=== PATIENT | female | born 1985 | race Caucasian/White ===

== ENCOUNTER → 2020-12-04 08:58 | Outpatient (CLI) | payer OTHER, SELFPAY ==
--- NOTE | 2020-12-04 09:04 | BI_ITS ---
MAMMOGRAPHY - BILATERAL DIAGNOSTIC REASON FOR EXAM: Female, 35 years old. Right breast lump. PERTINENT HISTORY: Non-contributory. TECHNIQUE: Digital bilateral breast phil (3D mammographic acquisition) in the CC and MLO projections. 2-D mediolateral oblique (MLO) and craniocaudad (CC) views of both breasts were obtained. CAD: Full Field Digital Mammography with Computer Added Detection was performed. COMPARISON: None. Baseline examination. FINDINGS: Breast Composition: There are scattered areas of fibroglandular density. There are no dominant masses or suspicious calcifications. No other significant abnormalities are identified. BI/DIAG MAMM W/CAD, BILAT IMPRESSION: Negative diagnostic mammogram. With the patient''s history of a palpable lump in the upper aspect of the right breast, correlation with ultrasound is recommended. ASSESSMENT CATEGORY: BIRADS Category 0: Incomplete. Need additional imaging evaluation. A letter regarding these results will be sent to the patient by the facility within 30 days. Approximately 10% of breast cancers are not detected by mammography. A normal mammogram should not delay biopsy of a clinically suspicious abnormality. Electronically Signed: Jordan Obrien MD at 10:04 EDT , Service support ,
--- NOTE | 2020-12-04 09:35 | US_ITS ---
STUDY: ULTRASOUND BREAST - RIGHT REASON FOR EXAM: Female, 35 years old. Palpable lump in the right breast. TECHNIQUE: Axial and longitudinal images of the RIGHT breast were performed with a high resolution ultrasound transducer. # OF IMAGES: 31 COMPARISON: Comparison is made with prior mammogram done earlier today. FINDINGS: RIGHT Breast: The upper outer quadrant of the right breast was examined by ultrasound. No sonographic abnormality is seen. US/Breast Limited Unilateral IMPRESSION: No sonographic abnormality is seen. ASSESSMENT CATEGORY: BIRADS Category 1: Negative. A letter regarding these results will be sent to the patient by the facility within 30 days. Electronically Signed: Jordan Obrien MD at 10:17 EDT , Service support ,
== END ==
PROVIDERS: Referring Provider Obstetrics & Gynecology; Visit Provider Obstetrics & Gynecology
DX: N63.10 Unspecified lump in the right breast, unspecified quadrant (principal); R92.8 Other abnormal and inconclusive findings on diagnostic imaging of breast
CPT/HCPCS: 76642; 77062; 77066; G0279

== ENCOUNTER 2024-05-02 16:29 | Emergency (ER) | payer OTHER, SELFPAY ==
[2024-05-02 16:33] VITALS: BP 167/97; PULSE 44; RESP 18; TEMP 36.2; O2SAT 94; BMI 28.8
--- NOTE | 2024-05-02 16:58 | EKG12_ITS ---
Test Reason : PALPITATIONS Blood Pressure : */* mmHG Vent. Rate : 87 BPM Atrial Rate : 87 BPM P-R Int : 130 ms QRS Dur : 72 ms QT Int : 370 ms P-R-T Axes : 72 25 60 degrees QTcB Int : 445 ms Normal sinus rhythm with sinus arrhythmia Normal ECG Confirmed by Ty Candelaria ([id number]), online editor MINOR OLIVEROS ([id number]) on 05/04/2024 11:02:25 AM Referred By: Confirmed By: Ty Candelaria
--- NOTE | 2024-05-02 17:01 | ED.VIS.CHEST ---
HPI History of Present Illness Chief Complaint: Chest Pain Detail of Chief Complaint: Central chest tightness, heart pounding Informant: patient and spouse/S.O. Onset/Context/Timing Onset: Hours Activity at onset: sudden Timing: Continuous Quality: Positive for Tightness Location: Substernal Current Severity: Mild Maximum Severity: Moderate Worsened By: Nothing Relieved By: Nothing Associated Symptoms: Positive for Palpitations; Negative for Nausea, Vomiting, Diaphoresis, Dyspnea, Cough, Fever, Lightheadedness or Acid Reflux Narrative Narrative: Patient is a 38-year-old healthy female with no medical problems no medication who apparently started taking a diet suppressant 3 days ago. She does not know the name. She has no history of coronary disease, hypertension, diabetes, cholesterol. She has been seen by residential support specialist at [facility]. She was referred to them because there was concern she had pericarditis. The residential support specialist states she had costochondritis and not pericarditis. She normally sees her doctor who is affiliated with [facility]. She denies any recent infectious symptoms. Denies fever or chills. When her heart was pounding and she felt palpitations heart rate was 120. She states her heart rate has been as high as 160 in the past. She was not diagnosed with PSVT, reentry tachycardia or any type of dysrhythmia. She denies paresthesia, anesthesia or motor weakness. She denies orthostatic symptoms. There is no history of VTE and she has no risk factors. She denies leg pain, swelling or discoloration. Prior Similar Symptoms: Yes Recent Illness/Hospitalization: No CVD Risk Factors: Negative for Hypertension, Diabetes, Hypercholesterolemia, Family History 1' </=55 or Smoking PE Risk Factors: Negative for Recent Travel/Surgery, Recent Immobilization, Prior DVT or PE, Cancer or OCP + Smoking + >/=35 TAD Risk Factors: Negative for Marfan's Syndrome, Hypertension or Family History PFSH PFSH Medical History no medical history no medical history Home Medications ?Medication ?Instructions ?Recorded ?Last Taken ?Type NK 05/02/24 Unknown History Allergy/AdvReac Type Severity Reaction Status Date / Time morphine Allergy Hives Verified 05/02/24 16:32 mushroom (mushrooms) Allergy Hives Verified 05/02/24 16:33 Family History no significant family his Surgical History S/P cholecystectomy Surgical History no surgical history Social History (Updated 05/02/24 @ 17:[address] Devin Cummings MD) household members: spouse Smoking Status: Never smoker alcohol intake: never substance use type: does not use ROS ROS ED Constitutional Constitutional ED: Denies chills, fever(s), subjective or sweats Eyes Eyes: Reports none ENT ENT ED: Denies ear pain or rhinorrhea Cardiovascular Cardiovascular: Reports as per HPI; Denies orthopnea or paroxysmal nocturnal dyspnea Respiratory/Chest Respiratory/Chest: Denies cough, dyspnea, dyspnea on exertion, orthopnea or paroxysmal nocturnal dyspnea Gastrointestinal Gastrointestinal: Denies abdominal pain, diarrhea, melena or vomiting Musculoskeletal Musculoskeletal: Denies back pain Integumentary Denies rash Psychiatric Psychiatric: Denies anxiety Endocrine Endocrinology: Denies cold intolerance or heat intolerance Hematologic/Lymphatic Hematologic/Lymphatic: Denies easy bleeding or easy bruising EXAM Physical Exam Const Vital Signs: 05/02/24 16:33 05/02/24 17:03 05/02/24 18:00 Temperature 97.2 F L Temperature Source Temporal Pulse Rate 44 L 77 Respiratory Rate 18 15 Blood Pressure 167/97 H Blood Pressure Mean 120 Pulse Ox 94 98 Oxygen Delivery Method Room Air 05/02/24 19:00 05/02/24 20:00 Temperature 97.8 F Temperature Source Oral Pulse Rate 73 76 Respiratory Rate 17 16 Blood Pressure 126/75 H 125/72 H Blood Pressure Mean 92 89 Pulse Ox 99 99 Oxygen Delivery Method Room Air Room Air Positive well nourished and well developed General Appearance ED: well developed and NAD; Negative for pallor HEENT Reports moist mucous membranes normocephalic and atraumatic Eyes PERRL and EOMs intact bilaterally General Eye ED: Negative for pale conjunctiva or scleral icterus Neck no lymphadenopathy, supple and no JVD Resp normal respiratory effort and clear to auscultation bilaterally Cardio regular rate, regular rhythm, S1 normal heart sound, S2 normal heart sound and no murmurs Peripheral Pulses: pulses 2+ throughout GI normal to inspection, nondistended, normoactive bowel sounds, soft to palpation, non-tender, non-distended and no masses; Negative for hepatosplenomegaly Extremity normal to inspection Extremity Narrative: There is no asymmetry, swelling, discoloration, leg vein distention, palpable cords or tenderness along the distribution of the deep venous system. Neuro oriented x3 and CN's II-XII intact bilaterally Sensorium / Orientation: awake and alert Psych mental status grossly normal Skin no rashes or lesions noted General Skin Exam: Negative for jaundice or pallor MDM MDM MDM Narrative Medical decision making narrative: Differential diagnosis would be cardiac versus noncardiac chest pain. Noncardiac chest pain with includes GI etiology i.e. esophagitis, GERD peptic ulcer disease, pulmonary patient is PERC negative. Symptoms not consistent with pneumonia. Patient is status postcholecystectomy. She had no tenderness in the abdomen and specifically right upper quadrant. To evaluate patient's presentation EKG, chest x-ray and appropriate blood work was obtained. Lab Data Attestation: I reviewed the patient's lab results. Lab results narrative: CBC is normal. Electrolyte panel is unremarkable. Glucose is slowly elevated. First troponin is 4 Labs: Laboratory Results - last 24 hr 05/02/24 05/02/24 16:56 19:45 WBC 8.4 RBC 5.07 Hgb 14.7 Hct 44.6 MCV 88.0 MCH 29.0 MCHC 33.0 RDW Std Deviation 39.3 RDW Coeff of Heather 12.3 Plt Count 258 MPV 10.0 Immature Gran % (Auto) 0.400 Neut % (Auto) 76.2 H Lymph % (Auto) 16.7 L Craven % (Auto) 6.3 Eos % (Auto) 0.0 Baso % (Auto) 0.4 Absolute Neuts (auto) 6.4 Absolute Lymphs (auto) 1.41 Nucleated RBC % 0 Sodium 139 Potassium 3.1 L Chloride 107 Carbon Dioxide 26.0 Anion Gap 7 BUN 13 Creatinine 0.79 Estim Creat Clear Calc 100.95 Est GFR (MDRD) Af Amer 104 Est GFR (MDRD) Non-Af 86 BUN/Creatinine Ratio 16.4 Glucose 107 H Calcium 8.9 Troponin I High Sens 4 9 Second troponin is 9. Delta is 5. Plan is to discharge to home with follow-up with Dr. Candelaria since she would like to have a residential support specialist locally. Radiography Chest X-Ray - ED: 1 View, Read by ED Physician (Interpreted by me at 1710.), Normal, Heart, Lungs, Mediastinum, Bony Structures and No Acute Disease Diagnostic Testing: Clinical Impression(s) from Imaging Studies Chest X-Ray 05/02/24 17:05 IMPRESSION: Normal x-ray examination of the chest. Electronically Signed: Cornelio Cartwright MD at 17:20 EST , EKG Initial EKG: Attestation: I personally reviewed and interpreted this EKG as follows: Interpretation: Sinus Rhythm (Rate is 87. AK interval is 130 ms. QS duration 72 ms per QT duration 3 or 70 ms. Leigh is normal. The EKG is normal. And was obtained with symptoms) Discharge Plan Triage Chief Complaint: Chest Pain Other Complaint: Numb/Ting ED Provider: Devin Cummings Dx/Rx/DC Orders Clinical Impression: Chest pain of unknown etiology, Tachycardia, Palpitations Instructions: ED Chest Pain, Noncardiac, ED Palpitations Prescriptions: No Action NK Primary Care Provider: Regine Hay NP Referrals: Ty Candelaria MD [Med Staff - Active Staff] - 1-2 Weeks Regine Hay NP, [employer] [Primary Care Provider] - Print Language: Icelandic Disposition Disposition: Home, Self Care
--- NOTE | 2024-05-02 17:05 | RAD_ITS ---
STUDY: X-RAY CHEST REASON FOR EXAM: Female, 38 years old. chest pain TECHNIQUE: Single AP portable view of the chest. COMPARISON: None. FINDINGS: The lungs are clear and expanded. There is no demonstrated pleural abnormality. Normal size heart. Normal mediastinum and mian. Normal visualized pulmonary arteries. Normal visualized aortic arch and descending thoracic aorta. Normal visualized thoracic spine. Normal visualized ribs, clavicles, and shoulders. There is no demonstrated abnormality of the visualized soft tissue structures of the upper abdomen. RAD/Chest 1 View (Portable) IMPRESSION: Normal x-ray examination of the chest. Electronically Signed: Cornelio Cartwright MD at 17:20 EST ,
[2024-05-02 17:33] LABS: Absolute Lymphocyte Count 1.41 X10^3/uL (0.83-4.51); Absolute Neutrophil Count 6.4 X10^3/uL (2.0-7.7); Basophil# 0.03 X10^3/uL; Basophil% 0.4 % (0-1); Hematocrit 44.6 % (37-47); Hemoglobin 14.7 g/dL (12.0-15.0); Lymphocyte # 1.41 X10^3/ul (0.83-4.51); Lymphocyte % 16.7 % (19-41); Monocyte# 0.53 X10^3/uL; Monocyte% 6.3 % (0-10); NRBC Flagged by Analyzer 0 % (0-5); Neutrophil # 6.43 X10^3/uL (2.7-7.7); Neutrophil % 76.2 % (47-70); Platelet Count 258 K/mm3 (150-450); RBC Distribution Width CV 12.3 % (11.6-14.6); RBC Distribution Width SD 39.3 fl (35.1-43.9); Red Blood Count 5.07 M/mm3 (4.2-5.4); White Blood Count 8.4 K/mm3 (4.4-11.0)
[2024-05-02 17:57] LABS: Anion Gap 7 (5-15); BUN 13 mg/dL (7-18); BUN/Creat Ratio 16.4 RATIO (10-20); Calcium,Total 8.9 mg/dL (8.5-10.1); Chloride 107 mmol/L (98-107); Creatinine, Serum 0.79 mg/dL (0.55-1.02); EST Glomerular Filtration Rate 86 mL/min (>60); Est Glom Filt Rate - Afr Amer 104 mL/min (>60); Estimated Creatinine Clearance 100.95 ml/min; Glucose 107 mg/dL (74-106); Potassium 3.1 mmol/L (3.5-5.1); Sodium Level 139 mmol/L (136-145); Troponin-I HS (w/2H Reflex) 4 pg/mL (3.0-54.0)
[2024-05-02 18:00] VITALS: PULSE 77; RESP 15; O2SAT 98
[2024-05-02 19:00] VITALS: BP 126/75; PULSE 73; RESP 17; TEMP 36.6; O2SAT 99
[2024-05-02 19:23] LABS: Reflex Troponin-HS? (from REC) Y
[2024-05-02 20:00] VITALS: BP 125/72; PULSE 76; RESP 16; O2SAT 99
[2024-05-02 20:11] LABS: Troponin-I HS 9 pg/mL (3.0-54.0)
[2024-05-02 20:24] VITALS: BP 126/84; PULSE 96; RESP 19; TEMP 36.7; O2SAT 98
== END 2024-05-02 20:54 | disposition home or self-care (01) ==
PROVIDERS: Emergency Provider Emergency Medicine; PCP Nurse Practitioner Family; Visit Provider Emergency Medicine
DX: R07.9 Chest pain, unspecified (principal); R00.2 Palpitations; R00.0 Tachycardia, unspecified; Z90.49 Acquired absence of other specified parts of digestive tract
CPT/HCPCS: 71045; 80048; 84484; 85025; 93005; 99285; A4216

== ENCOUNTER → 2024-06-12 | Outpatient (CLI) | payer OTHER, SELFPAY ==
[2024-06-12 10:27] LABS: Anion Gap 4 (5-15); BUN 18 mg/dL (7-18); BUN/Creat Ratio 26.2 RATIO (10-20); Calcium,Total 8.5 mg/dL (8.5-10.1); Chloride 106 mmol/L (98-107); Creatinine, Serum 0.69 mg/dL (0.55-1.02); EST Glomerular Filtration Rate 102 mL/min (>60); Est Glom Filt Rate - Afr Amer 123 mL/min (>60); Glucose 96 mg/dL (74-106); Potassium 3.8 mmol/L (3.5-5.1); Sodium Level 139 mmol/L (136-145)
== END | disposition home or self-care (01) ==
LOC: LAB 09:10
PROVIDERS: PCP Nurse Practitioner Family; Referring Provider Internal Medicine Cardiovascular Disease; Visit Provider Internal Medicine Cardiovascular Disease
DX: R00.2 Palpitations (principal)

== ENCOUNTER → 2024-08-28 | Outpatient (CLI) | payer OTHER, SELFPAY ==
--- NOTE | 2024-08-28 08:13 | CT_ITS ---
PROCEDURE: ORB SELLA POST FOSSA EAR W/O 08/28/2024 REASON FOR EXAM: PERIOBRITAL PAIN RIGHT EYE TECHNIQUE: CT of the orbits without contrast. One or more dose reduction techniques were used (e.g., Automated exposure control, adjustment of the mA and/or kV according to patient size, use of iterative reconstruction technique). RADIATION DOSE SUMMARY: CTDlvol: 33.06 mGy DLP: 755.34 mGycm COMPARISON: None available FINDINGS: Globes appear intact without retro bulbar stranding. Orbits appear within limits. Periorbital and preseptal soft tissues appear within limits. Infratemporal fossa fat appears preserved. Pterygopalatine foramen appear within limits. Symmetric appearing bilateral fossa of Rosenmuller. TMJs appear normally located. Epiglottis and aryepiglottic folds appear within limits. Parotids and submandibular glands appear within limits. No adenopathy identified. Mastoids, middle and inner ears appear within limits. Internal auditory canals appear symmetric. [id number]-tzjvrz lynvd-[id number]-jnvc-left bilateral maxillary sinus mucoperiosteal thickening with a small amount of frothy material with associated soft tissue opacification of bilateral maxillary sinus ostium for example coronal 41. Moderate mucoperiosteal thickening and small frothy material right sphenoid sinus with associated opacification of the sphenoethmoid recess axial 87. A few bilateral ethmoid air cells with [id number]-oa-[id number] mucoperiosteal thickening and some frothy material. The frontal sinuses appear clear. No air-fluid levels identified. Sinus raines appear within limits without thickening or sclerotic change. No periapical lucencies. CT/Orb Sella Post Fossa Ear w/o IMPRESSION: Paranasal sinuses disease greatest in the bilateral maxillary and right sphenoi d sinuses as described above. No definite air-fluid levels identified. Reading Location: [id number]
== END | disposition home or self-care (01) ==
PROVIDERS: PCP Nurse Practitioner Family; Referring Provider Ophthalmology; Visit Provider Ophthalmology
DX: H57.11 Ocular pain, right eye (principal)
CPT/HCPCS: 70480

== ENCOUNTER 2024-10-12 13:54 | Observation (INO) | payer OTHER, SELFPAY ==
[2024-10-12] VITALS (13 sets, daily range): BP systolic 128–156; BP diastolic 64–90; PULSE 60–107; RESP 14–98; TEMP 36.6–37.1; O2SAT 97–100; BMI 29.6; BMI 30.3; BMI 28.9
--- NOTE | 2024-10-12 12:06 | MRI_ITS ---
PROCEDURE: BRAIN WITHOUT CONTRAST 10/13/2024 REASON FOR EXAM: TIA VS MIGRAINE TECHNIQUE: Noncontrast brain MRI. Multiplanar and multisequence images were obtained. COMPARISON: CT brain and CTCA head and neck 10/12/2024 FINDINGS: Brain: The brain is of normal signal intensities. There are no midline structural anomalies. The hippocampi appear symmetric and normal. Ventricles: Normal. Major Intracranial Vessels: Major intracranial vessels, demonstrate normal signal flow voids. Sinuses: Unremarkable. Mastoids: Clear. Craniocervical junction is within normal limits. Calvarium and extracranial soft tissues are unremarkable. Orbits are within normal limits. MRI/Brain without Contrast IMPRESSION: No acute intracranial abnormality. Reading Location: [id number]
--- NOTE | 2024-10-12 13:58 | ED.RN ---
ED MD notified of symptoms.
--- NOTE | 2024-10-12 15:11 | EKG12_ITS ---
Test Reason : Blood Pressure : */* mmHG Vent. Rate : 87 BPM Atrial Rate : 87 BPM P-R Int : 136 ms QRS Dur : 70 ms QT Int : 362 ms P-R-T Axes : 76 30 67 degrees QTcB Int : 435 ms Normal sinus rhythm Nonspecific ST abnormality Abnormal ECG Confirmed by CLAUDINE SANTIZO, ORA ([id number]), supervising editor news reel MINOR OLIVEROS ([id number]) on 10/16/2024 7:45:52 AM Referred By: Bradley Hannon Confirmed By: ORA CHOW MD
--- NOTE | 2024-10-12 15:11 | CT_ITS ---
PROCEDURE: STROKE BRAIN/HEAD WITHOUT CONT 10/12/2024 REASON FOR EXAM: NEURO DEFICIT, ACUTE, STROKE SUSPECTED TECHNIQUE: Head CT without intravenous contrast. Coronal and Sagittal reconstruction series were provided. One or more dose reduction techniques were used (e.g., Automated exposure control, adjustment of the mA and/or kV according to patient size, use of iterative reconstruction technique. RADIATION DOSE SUMMARY: CTDlvol: 44.99 mGy DLP: 745.49 mGycm COMPARISON: None FINDINGS: Brain: Normal CSF Spaces: Normal Sinuses/Mastoids: Clear at visualized levels Bones: Unremarkable CT/STROKE Brain/Head without Cont IMPRESSION: NORMAL NONCONTRAST HEAD CT. Red Alert: Nothing acute. The critical information above was relayed directly by me by telephone to Bradley Ferrari on 10/12/2024 at 3:32 pm with readback verification. Reading Location: [id number]
--- NOTE | 2024-10-12 15:12 | CT_ITS ---
PROCEDURE: STROKE CTA HEAD AND NECK W/CON 10/12/2024 REASON FOR EXAM: NEURO DEFICIT, ACUTE, STROKE SUSPECTED TECHNIQUE: CTA imaging of the head and neck from the aortic arch to the skull vertex with out contrast and with intravenous contrast. Multiplanar and multisequence images were obtained. CONTRAST: Omnipaque 350 VOLUME: 100 mL Not Provided gauge IV One or more dose reduction techniques were used (e.g., Automated exposure control, adjustment of the mA and/or kV according to patient size, use of iterative reconstruction technique). COMPARISON: None FINDINGS: Aortic Arch: Normal size and branching pattern. No significant atherosclerotic plaque. Brachiocephalic and Subclavians: Unremarkable RIGHT Carotid: Right CCA: Unremarkable. Right ICA: Unremarkable. Maximum stenosis (NASCET): 0 % Right ECA: Unremarkable. LEFT Carotid: Left CCA: Unremarkable. Left ICA: Unremarkable. Maximum stenosis (NASCET): 0 % Left ECA: Unremarkable. Vertebrals: Codominant. Arise from the subclavians. Both vertebrals form the basilar. RIGHT Vertebral: Unremarkable. LEFT Vertebral: Unremarkable. Anatomy: [place] anatomy is normal. Aneurysm or avm: No intracranial aneurysms or large vascular malformations are identified. Anterior cerebral arteries: Unremarkable: Middle cerebral arteries: Unremarkable. Basilar artery: Unremarkable. Posterior cerebral arteries: Unremarkable. Other major branches of the posterior circulation: Unremarkable. Major venous structures: Unremarkable. Other findings: Neck: 7 mm right upper thyroid pole low-attenuation nodule. Lungs: Lung apices are clear. Bones: Bones are unremarkable. CT/STROKE CTA Head AND Neck W/Con IMPRESSION: Patent anterior and posterior intracranial and extracranial circulation without hemodynamically significant stenosis. Reading Location: [facility]
--- NOTE | 2024-10-12 15:12 | ED.VIS.STROK ---
HPI History of Present Illness Chief Complaint: Neuro S/Sx Narrative Narrative: 39-year-old female who denies significant past medical history presents with neurological symptoms that she experienced at 1120 this morning while she was at work. She is employed at an elementary school. She states she was at her computer, and then was looking above it at another monitor. She states that her eyes rolled back and she felt pain on the right side of her head and right side of her chest radiating down her entire body. It lasted 10 to 20 seconds. She states her tongue felt numb as well, but was unsure if it was her entire tongue or just the right side. That lasted for approximately an hour with her tongue numbness. She may have had slight headache as well. She states this has happened to her previously where it woke her from sleep but she was sleeping with a heating pad and she thought maybe she got an electric shock from her heating pad. Currently, her symptoms had resolved. This happened approximately 4 hours ago. [facility] Medical History (Updated 10/12/24 @ 16:30 by Jaylin Whyte) Irregular heart beat Hypertension Costochondritis Chest pain Palpitations Home Medications ?Medication ?Instructions ?Recorded ?Last Taken ?Type mecobalamin (vitamin B12) 1,000 1,000 mcg PO BID weightloss 10/12/24 10/12/24 History mcg lozenges metformin 500 mg tablet,extended 500 mg PO DAILY 10/12/24 10/11/24 History release 24 hr topiramate 50 mg tablet (Topamax) 27.5 mg PO Q12H WEIGHT LOSS 10/12/24 10/12/24 History Allergy/AdvReac Type Severity Reaction Status Date / Time morphine Allergy Hives Verified 10/12/24 16:30 mushroom (mushrooms) Allergy Hives Verified 10/12/24 16:30 Family History Grandfather Pulmonary emboli Surgical History (Updated 10/12/24 @ 16:30 by Jaylin Whyte) History of cholecystectomy History of ovarian cystectomy History of colonoscopy S/P cholecystectomy Social History household members: spouse Smoking Status: Never smoker alcohol intake: never substance use type: does not use caffeine: No ROS ROS ED ROS Narrative Review of systems positive for right sided electric shock feeling, radiating down right arm and into chest. Radiated upwards into head as well. No recent fevers or chills, no nausea or vomiting. Slight headache. States tongue was numb for approximately 1 hour. Baseline history of sinus problems dating supposed to have sinus surgery tomorrow. Symptoms have resolved. EXAM Physical Exam Narrative Exam Narrative: Afebrile. Vital signs noted. Nontoxic-appearing. Cardiovascular examination feels a regular rate and rhythm. Lungs are clear to auscultation bilaterally. Abdomen is soft, nontender, positive bowel sounds. Neurological examination is nonfocal, nonlateralizing. NIH stroke scale is 0. No pedal edema. Const Vital Signs: 10/12/24 13:55 10/12/24 14:55 10/12/24 15:00 Temperature 98.4 F Temperature Source Oral Pulse Rate 83 78 78 Respiratory Rate 18 16 16 Blood Pressure 156/90 H 143/76 H 134/78 H Blood Pressure Mean 112 98 96 Pulse Ox 100 98 98 Oxygen Delivery Method Room Air Room Air Room Air 10/12/24 15:11 10/12/24 15:11 10/12/24 15:11 Temperature 98.6 F 98.6 F Temperature Source Oral Oral Pulse Rate 67 107 H Respiratory Rate 16 98 H Blood Pressure 141/78 H Blood Pressure Mean 99 Pulse Ox 98 100 Oxygen Delivery Method Room Air Room Air Room Air 10/12/24 15:41 10/12/24 16:00 10/12/24 16:11 Temperature 98.6 F 98.4 F Temperature Source Oral Oral Pulse Rate 78 78 78 Respiratory Rate 14 16 18 Blood Pressure 131/78 H 132/66 H 136/78 H Blood Pressure Mean 95 88 97 Pulse Ox 98 99 97 Oxygen Delivery Method Room Air Room Air Room Air 10/12/24 16:37 10/12/24 17:00 Temperature 98.7 F 98.6 F Temperature Source Oral Oral Pulse Rate 78 64 Respiratory Rate 14 18 Blood Pressure 128/64 H 129/79 H Blood Pressure Mean 85 95 Pulse Ox 98 97 Oxygen Delivery Method Room Air Room Air MDM MDM MDM Narrative Medical decision making narrative: Differential diagnosis includes but not limited to atypical migraine versus cervical radiculopathy versus TIA versus ischemic stroke versus hemorrhagic stroke. Her symptoms have essentially resolved. However, given that her symptoms started within the last 24 hours, concern would be more for TIA. Stroke team was initiated. However, I do not feel she is a TNK candidate because she has no debilitating deficit and her symptoms resolved. I reviewed her laboratory work and she has normal white count of 8.2 with hemoglobin slightly elevated 15.1, hematocrit 43.3, platelet count 248. Coagulation studies are negative. BMP is grossly unremarkable with a glucose of 100 anion gap normal at 11. High-sensitivity troponin is less than 6. Chest x-ray in 1 view interpreted by myself independently shows no acute process, no pneumonia, no pneumothorax. I reviewed the radiology report which confirms my independent interpretation. EKG was obtained and interpreted by myself independently as normal sinus rhythm at 87 bpm without ectopy or acute ST changes. No STEMI. I received a call from the radiologist regarding the CT of the brain which shows no acute process or hemorrhage. I reviewed the radiology report of the CTA of the head and neck and there is no significant stenosis or large vessel occlusion. I discussed the patient with the neurologist/teleneurologist Dr. Minaya who recommends observation for further workup including MRI given the patient's tongue numbness for 1 hour. Patient will be discussed with the hospitalist, Dr. Bekah Anthony, for observation on the PCU. Patient is in stable condition. History & Record Review Discussion w/independent historian: Patient Additional record(s) reviewed:: Prior ED visit (Noncontributory to current chief complaint) Lab Data Attestation: I reviewed the patient's lab results. Labs: Laboratory Results - last 24 hr 10/12/24 10/12/24 15:20 16:16 WBC 8.2 RBC 5.01 Hgb 15.1 H Hct 43.3 MCV 86.4 MCH 30.1 MCHC 34.9 RDW Std Deviation 39.9 RDW Coeff of Heather 12.8 Plt Count 248 MPV 10.2 Immature Gran % (Auto) 0.400 Neut % (Auto) 80.4 H Lymph % (Auto) 14.1 L [place] % (Auto) 5.0 Eos % (Auto) 0.0 Baso % (Auto) 0.1 Absolute Neuts (auto) 6.6 Absolute Lymphs (auto) 1.16 Nucleated RBC % 0 PT 14.1 INR 1.1 APTT 25.4 Sodium 140 Potassium 3.6 Chloride 108 Carbon Dioxide 21.2 Anion Gap 11 BUN 18 Creatinine 0.88 Estim Creat Clear Calc 92.01 Est GFR (MDRD) Non-Af 87 BUN/Creatinine Ratio 20.1 H Glucose 100 H Calcium 8.8 Troponin T High Sens < 6 Troponin T Hi Sens 2 Hr < 6 Radiography Chest X-Ray - ED: 1 View, Read by ED Physician, Read by Radiologist, No Acute Disease and No Infiltrates Diagnostic Testing: Clinical Impression(s) from Imaging Studies Brain CT 10/12/24 15:11 IMPRESSION: NORMAL NONCONTRAST HEAD CT. Red Alert: Nothing acute. The critical information above was relayed directly by me by telephone to MahoganyjoaquinBradley on 10/12/2024 at 3:32 pm with readback verification. Reading Location: [id number] Head/Neck CTA 10/12/24 15:12 IMPRESSION: Patent anterior and posterior intracranial and extracranial circulation without hemodynamically significant stenosis. Reading Location: [facility] Chest X-Ray 10/12/24 15:40 IMPRESSION: Negative Chest. Reading Location: [id number] Management Discussion w/another healthcare provider: Hospitalist (Dr. Anthony), Notched Blade Loader (Dr. Minaya) and Radiologist (Dr. Obrien) Discharge Plan Dx/Rx/DC Orders Clinical Impression: Right sided numbness, Numbness of tongue, Electrical shock sensation Disposition Disposition: Acute Care Hospital [facility] NIHSS NIHSS 1a. Level of Consciousness: 0 - Alert; keenly responsive 1b. LOC Questions: 0 - Answers BOTH questions correctly 1c. LOC Commands: 0 - Performs BOTH tasks correctly 2. Best Gaze: 0 - Normal 3. Visual: 0 - No visual loss 4. Facial Palsy: 0 - Normal symmetrical movements 5a. Left Arm: 0 - No drift; arm holds 90 (or 45) degrees for full 10 seconds 5b. Right Arm: 0 - No drift; arm holds 90 (or 45) degrees for full 10 seconds 6a. Left Le - No drift; leg holds 30-degree position for full 5 seconds 6b. Right Le - No drift; leg holds 30-degree position for full 5 seconds 7. Limb Ataxia: 0 - Absent 8. Sensory: 0 - Normal; no sensory loss 9. Best Language: 0 - No aphasia; normal 10. Dysarthria: 0 - Normal 11. Extinction and Inattention: 0 - No abnormality Total: 0 Stroke Questions Stroke Team Activated: Yes Reviewed Inclusion/Exclusion criteria: Yes Was Patient considered for Endovascular Intervention?: No IV Thrombolytic Administered: No
[2024-10-12 15:30] LABS: Absolute Lymphocyte Count 1.16 X10^3/uL (0.83-4.51); Absolute Neutrophil Count 6.6 X10^3/uL (2.0-7.7); Basophil# 0.01 X10^3/uL; Basophil% 0.1 % (0-1); Hematocrit 43.3 % (37-47); Hemoglobin 15.1 g/dL (12.0-15.0); Lymphocyte # 1.16 X10^3/ul (0.83-4.51); Lymphocyte % 14.1 % (19-41); Mean Corp Hgb Conc 34.9 g/dL (32-36); Mean Corpuscular Hgb 30.1 pg (27.0-32.0); Mean Corpuscular Volume 86.4 fL (81-99); Mean Platelet Vol. 10.2 fl (6.2-12.0); Monocyte# 0.41 X10^3/uL; NRBC Flagged by Analyzer 0 % (0-5); Neutrophil # 6.62 X10^3/uL (2.7-7.7); Neutrophil % 80.4 % (47-70); Platelet Count 248 K/mm3 (150-450); RBC Distribution Width CV 12.8 % (11.6-14.6); RBC Distribution Width SD 39.9 fl (35.1-43.9); Red Blood Count 5.01 M/mm3 (4.2-5.4); White Blood Count 8.2 K/mm3 (4.4-11.0)
--- NOTE | 2024-10-12 15:40 | RAD_ITS ---
PROCEDURE: CHEST 1 VIEW 10/12/2024 REASON FOR EXAM: NEURO DEFICIT, ACUTE, STROKE SUSPECTED TECHNIQUE: Frontal view of the chest. COMPARISON: May 02, 2024. FINDINGS: Hardware: Heart: Cardiac and mediastinal contours are stable. Lungs: No significant change in the appearance of the lungs. Bones: The bones are unremarkable. Other: RAD/Chest 1 View IMPRESSION: Negative Chest. Reading Location: [id number]
[2024-10-12 15:45] LABS: International Normalized Ratio 1.1; Prothrombin Time (Protime)PT. 14.1 SECONDS (11.7-14.9)
[2024-10-12 15:46] LABS: Partial Thromboplast Time 25.4 Seconds (24.1-36.2)
[2024-10-12 15:47] LABS: Anion Gap 11 (5-15); BUN 18 mg/dL (4-19); BUN/Creat Ratio 20.1 RATIO (10-20); Calcium,Total 8.8 mg/dL (7.6-11.0); Carbon Dioxide 21.2 mmol/L (21.0-32.0); Chloride 108 mmol/L (98-108); Creatinine, Serum 0.88 mg/dL (0.70-1.20); EST Glomerular Filtration Rate 87 (>60); Estimated Creatinine Clearance 92.01 ml/min (50-250); Glucose 100 mg/dL (70-99); Potassium 3.6 mmol/L (3.3-5.1); Sodium Level 140 mmol/L (133-145); Troponin T High Sensitivity < 6 ng/L (<=14)
[2024-10-12 16:45] LABS: Troponin T High Sens 2 HR < 6 ng/L (<=14)
--- NOTE | 2024-10-12 17:25 | HP.PCM.HOS_ITS ---
HPI - General General Date of Admission: 10/12/24 Date of Service: 10/12/24 Chief Complaint: RODRIGUEZ, R sided paresthesias. HPI Narrative The patient is a 39 y/o F w/ PMHx: Obesity who presents to the [facility] ED on 10/12/2024 with sudden onset of paresthesia/tingling to the head radiating down the entire right side of her body described as like an electrical shock lasting approximately 10 seconds with numbness also to the entire tongue, lower lip with some residual numbness ongoing for approximately 1 hour with a slight headache prompting ED evaluation. In the ED upon evaluation she notes symptoms of currently resolved. Stroke alert in the ED was initiated given concern and her NIH stroke scale assessment per neurology was 0 with concern for possible TIA versus migraine. 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 She does report that she has been on metformin and Topamax both for weight loss specifically. She denies ever having had a headaches or migraines previously. Workup in the ED included T98.4, heart rate 83, BP initially 156/90, respiratory rate 18, under percent on room air with most recent repeat vitals T98.7, heart rate 78, BP 120/64, respiratory rate 14, 98% on room air, CBC with WBC 8.2, hemoglobin 15.1, platelet 248 without marked shift, unremarkable coags, unremarkable BMP aside glucose 100, initial troponin less than 6, repeat delta less than 6, CT of the brain with no acute intracranial findings, CTA head and neck with patent anterior and posterior intracranial and extracranial circulation without any hemodynamically significant stenosis, chest x-ray with no acute cardiopulmonary findings, EKG sinus rhythm with no acute evidence of ischemia. Pending testing upon request evaluation patient. [facility] Medical History (Updated 10/12/24 @ 17:[address] Bekah Anthony MD) Tachycardia Obesity Home Medications ?Medication ?Instructions ?Recorded ?Last Taken ?Type mecobalamin (vitamin B12) 1,000 1,000 mcg PO BID weigh tloss 10/12/24 10/12/24 History mcg lozenges metformin 500 mg tablet,extended 500 mg PO DAILY 10/1210/11/24 History release 24 hr topiramate 50 mg tablet (Topamax) 27.5 mg PO Q12H AMYG HT LOSS 10/12/24 10/12/24 History Allergy/AdvReac Type Severity Reaction Status Date / Time morphine Allergy Hives Verified 10/12/24 16:30 mushroom (mushrooms) Allergy Hives Verified 10/12/24 16:30 Family History Grandfather Pulmonary emboli Mother No problems noted. Father No problems noted. Surgical History (Updated 10/12/24 @ 16:30 by Jaylin Whyte) History of cholecystectomy History of ovarian cystectomy History of colonoscopy S/P cholecystectomy Social History household members: spouse Smoking Status: Never smoker alcohol intake: never substance use type: does not use caffeine: No ROS ROS Narrative Admission Review of Systems: CONSTITUTIONAL: No weight loss, fever, chills, + weakness or fatigue. HEENT: + Right-sided facial paresthesias/numbness, headache. Eyes: No visual loss, blurred vision, double vision or yellow sclerae. Ears, Nose, Throat: No hearing loss, sneezing, congestion, runny nose or sore throat. SKIN: No rash or itching, lesions, wounds. CARDIOVASCULAR: No chest pain, chest pressure or chest discomfort, palpitations, edema, orthopnea, syncopal events. RESPIRATORY: No shortness of breath, cough or sputum, wheezing, hemoptysis. GASTROINTESTINAL: No anorexia, nausea, vomiting or diarrhea, abdominal pain, melena, BRBPR. GENITOURINARY: No dysuria, frequency, urgency or retention. NEUROLOGICAL: + Mild headache, right sided facial and right upper extremity/lower extremity paresthesias, transient. No dizziness, syncope, paralysis, ataxia, focal weakness, change in bowel or bladder control, seizure. MUSCULOSKELETAL: No muscle, back pain, joint pain or stiffness. HEMATOLOGIC: No anemia, bleeding or bruising. LYMPHATICS: No enlarged nodes. No history of splenectomy. PSYCHIATRIC: No history of depression or anxiety. ENDOCRINOLOGIC: No reports of sweating, cold or heat intolerance. No polyuria or polydipsia. ALLERGIES: + History of hives. Vital Signs Vital Signs Vital Signs: 10/12/24 13:55 10/12/24 14:55 10/12/24 15:00 Temperature 98.4 F Temperature Source Oral Pulse Rate 83 78 78 Respiratory Rate 18 16 16 Blood Pressure 156/90 H 143/76 H 134/78 H Blood Pressure Mean 112 98 96 Pulse Ox 100 98 98 Oxygen Delivery Method Room Air Room Air Room Air 10/12/24 15:11 10/12/24 15:11 10/12/24 15:11 Temperature 98.6 F 98.6 F Temperature Source Oral Oral Pulse Rate 67 107 H Respiratory Rate 16 98 H Blood Pressure 141/78 H Blood Pressure Mean 99 Pulse Ox 98 100 Oxygen Delivery Method Room Air Room Air Room Air 10/12/24 15:41 10/12/24 16:00 10/12/24 16:11 Temperature 98.6 F 98.4 F Temperature Source Oral Oral Pulse Rate 78 78 78 Respiratory Rate 14 16 18 Blood Pressure 131/78 H 132/66 H 136/78 H Blood Pressure Mean 95 88 97 Pulse Ox 98 99 97 Oxygen Delivery Method Room Air Room Air Room Air 10/12/24 16:37 10/12/24 17:00 Temperature 98.7 F 98.6 F Temperature Source Oral Oral Pulse Rate 78 64 Respiratory Rate 14 18 Blood Pressure 128/64 H 129/79 H Blood Pressure Mean 85 95 Pulse Ox 98 97 Oxygen Delivery Method Room Air Room Air Weight Weight: 182 lb 1.629 oz Body Mass Index (BMI) 30.3 Physical Exam Narrative Physical Examination: General: Awake, alert, oriented x 3 and cooperative, seated upright in the ED bed in no apparent distress, notes continued resolution of previous neurological symptoms Skin: Normal color, normal turgor, no icterus, no cyanosis. HEENT: AT/NC, EOMI, PERRLA, MMM, no carotid bruits or JVD noted. Lungs: CTA bilaterally, moderate effort, mild decrease BL bases, no rales, ronchi or wheezing. Heart: Regular rate and rhythm; no gallop, rub audible. Abdomen: Soft, obese, NTTP, ND, normal BS, no appreciated HSM. Extremities: No cyanosis, clubbing, or edema. Neurological: Patient awake, alert, oriented as noted, cognitive function intact; pupils equally reactive to light and accommodation, cranial nerves gross normal, moving all 4 extremities, no focal deficits, strength preserved, sensation intact, finger-nose and llaj-gu-soeg appropriate, equivocal Babinski. Psychiatric: Affect appears normal, no acute evidence of depressive or anxiety feelings and denies any recent significant increase stress. Results Lab / Micro Data 10/12/24 15:20 10/12/24 15:20 Labs: Laboratory Results - last 24 hr 10/12/24 15:20: WBC 8.2, RBC 5.01, Hgb 15.1 H, Hct 43.3, MCV 86.4, MCH 30.1, MCHC 34.9, RDW Std Deviation 39.9, RDW Coeff of Heather 12.8, Plt Count 248, MPV 10.2, Immature Gran % (Auto) 0.400, Neut % (Auto) 80.4 H, Lymph % (Auto) 14.1 L, [place] % (Auto) 5.0, Eos % (Auto) 0.0, Baso % (Auto) 0.1, Absolute Neuts (auto) 6.6, Absolute Lymphs (auto) 1.16, Nucleated RBC % 0, PT 14.1, INR 1.1, APTT 25.4, Sodium 140, Potassium 3.6, Chloride 108, Carbon Dioxide 21.2, Anion Gap 11, BUN 18, Creatinine 0.88, Estim Creat Clear Calc 92.01, Est GFR (MDRD) Non-Af 87, BUN/Creatinine Ratio 20.1 H, Glucose 100 H, Calcium 8.8, Troponin T High Sens < 6 10/12/24 16:16: Troponin T Hi Sens 2 Hr < 6 Imaging Radiology Impression Brain CT 10/12/24 15:11 IMPRESSION: NORMAL NONCONTRAST HEAD CT. Red Alert: Nothing acute. The critical information above was relayed directly by me by telephone to Bradley Hannon on 10/12/2024 at 3:32 pm with readback verification. Reading Location: [id number] Head/Neck CTA 10/12/24 15:12 IMPRESSION: Patent anterior and posterior intracranial and extracranial circulation without hemodynamically significant stenosis. Reading Location: [facility] Chest X-Ray 10/12/24 15:40 IMPRESSION: Negative Chest. Reading Location: [id number] Assessment & Plan Assessment/Plan (1) Right sided numbness: PLAN: Plan The patient is a 39 y/o F w/ PMHx: Obesity who presents to the [facility] ED on 10/12/2024 with sudden onset of paresthesia/tingling to the head radiating down the entire right side of her body described as like an electrical shock lasting approximately 10 seconds with numbness also to the entire tongue, lower lip with some residual numbness ongoing for approximately 1 hour with a slight headache prompting ED evaluation. #1. Right-sided paresthesias concerning for CVA/TIA versus complex migraine: Will admit to PCU, will obtain MRI Brain, ECHO with bubble study, PT/OT/Speech/Nutrition evaluation per protocol. Will allow permissive HTN, maintain on asa, AM FLP, fall precautions. Mag, TSH, FLP, HgbA1c requested. Maintain on fall and aspiration precautions. Continue neurology consultation. If MRI of the brain is concerning for any type of strokelike findings would plan to obtain hypercoagulable panel. If MRI of the brain is negative may need to further pursue concept of atypical complex migraine. #2. Elevate BP without hypertensive diagnosis: BP initially elevated in the ED, potentially related with initial discomfort however this is resolved, will have as needed agents per stroke protocol. #3. Obesity: Weight loss and lifestyle changes encouraged. Holding metformin and Topamax which has been taking specifically for weight loss. #4. DVT prophylaxis: Lovenox. Charges/Coding Visit Charges Inpatient E&M: 52721 Init Hosp L2
[2024-10-12 17:54] LABS: Internal QC Validated? YES +Cl - CLEAR BKGD
[2024-10-12 17:55] LABS: Pregnancy, Serum, hCG Quali. NEGATIVE Negative; Record Kit Lot#, Serum Preg. 929381
[2024-10-12 18:04] LABS: Magnesium 2.3 mg/dL (1.5-2.2)
--- NOTE | 2024-10-12 19:48 | ECHOD_ITS ---
Reason For Study Reason For Study: TIA/CVA Procedure This was a 2D Doppler, Color Flow transthoracic echocardiogram. Exam performed portable in patient room. Left Ventricle Normal LV size. Left ventricular systolic function is normal. The left ventricular ejection fraction is 65 %. No regional wall motion abnormalities noted. Right Ventricle Normal RV size. Normal systolic function. Atria Normal left atrium. Normal right atrium. Bubble contrast study is negative for PFO/ASD. Mitral Valve Normal mitral valve. Tricuspid Valve Normal tricuspid valve. Aortic Valve Trisinus/trileaflet aortic valve. Pulmonic Valve Normal pulmonic valve. Great Vessels Normal aortic root. The pulmonary artery is normal size. Inferior vena cava collapse with respiration. Pericardium/Pleural No pericardial effusion. Medication Performed a rapid injection of agitated mix of 9 cc saline and 1cc air to assess for atrial septal defect. MMode/2D Measurements & Calculations LVIDd: 4.4 cm IVSd: 0.70 cm Ao root diam: 3.0 cm LVIDs: 3.0 cm LVPWd: 0.65 cm FS: 32.7 % LAV(MOD-bp): 32.3 ml LVAd ap4: 27.9 cm2 LVAd ap2: 25.2 cm2 LAV(MOD-bp) Indexed: 17.0 ml/m2 LVLd ap4: 7.9 cm LVLd ap2: 8.1 cm LAV(MOD-sp2): 31.8 ml EDV(MOD-sp4): 82.9 ml EDV(MOD-sp2): 67.7 ml LAV(MOD-sp4): 31.9 ml EDV(sp4-el): 83.4 ml EDV(sp2-el): 66.5 ml LVAs ap4: 14.0 cm2 LVAs ap2: 13.0 cm2 LVLs ap4: 5.9 cm LVLs ap2: 6.3 cm ESV(MOD-sp4): 28.9 ml ESV(MOD-sp2): 23.4 ml ESV(sp4-el): 28.0 ml ESV(sp2-el): 22.8 ml EF(MOD-sp4): 65.1 % EF(MOD-sp2): 65.4 % EF(sp4-el): 66.5 % SV(MOD-sp4): 54.0 ml SV(MOD-sp2): 44.3 ml SV(sp4-el): 55.5 ml SI(MOD-sp4): 28.4 ml/m2 SI(MOD-sp2): 23.3 ml/m2 LA A4 area: 13.1 cm2 LA dimension(2D): 3.5 cm RA A4 area: 8.7 cm2 TAPSE: 2.1 cm Time Measurements MV dec time: 0.17 sec Doppler Measurements & Calculations MV E max clark: 67.0 cm/sec Lat Peak E' Clark: 21.9 cm/sec Med Peak E' Clark: 16.0 cm/sec MV A max clark: 45.9 cm/sec E/E' lat: 3.1 E/E' med: 4.2 MV E/A: 1.5 MV V2 max: 85.4 cm/sec MV P1/2t max clark: 91.2 cm/sec Ao V2 max: 133.2 cm/sec MV max P.9 mmHg MV P1/2t: 43.6 msec Ao max P.1 mmHg MV V2 mean: 55.8 cm/sec MV dec slope: 612.3 cm/sec2 Ao V2 mean: 91.1 cm/sec MV mean P.4 mmHg MVA(P1/2t): 5.0 cm2 Ao mean P.8 mmHg MV V2 VTI: 21.1 cm Ao V2 VTI: 26.5 cm AV (velocity ratio): 0.77 LV V1 max: 112.6 cm/sec PA V2 max: 133.6 cm/sec LV V1 max P.1 mmHg PA V2 mean: 93.9 cm/sec LV V1 mean P.7 mmHg LV V1 mean: 77.7 cm/sec LV V1 VTI: 20.4 cm ECHO/Echo Complete Interpretation Summary Normal LV size. Left ventricular systolic function is normal. The left ventricular ejection fraction is 65 %. Bubble contrast study is negative for PFO/ASD. Structurally normal valves. Ordering Physician: Bekah Anthony Referring Physician: Bradley Hannon Performed By: Kenia Alan, VIKTOR, RVT
[2024-10-12] MEDS: 0.9% Normal Saline (1000mL) 1,000 ML 100 ML IV (20:26)
[2024-10-12] MEDS: Aspirin 325 MG Tablet PO (20:29)
[2024-10-13] VITALS: BP 129/65; PULSE 79; RESP 18; TEMP 36.8; O2SAT 100
[2024-10-13 01:24] VITALS: BMI 30.3
[2024-10-13 04:12] VITALS: BP 111/57; PULSE 66; RESP 18; TEMP 36.7; O2SAT 98
[2024-10-13 07:19] LABS: Absolute Lymphocyte Count 1.43 X10^3/uL (0.83-4.51); Absolute Neutrophil Count 4.3 X10^3/uL (2.0-7.7); Basophil# 0.02 X10^3/uL; Basophil% 0.3 % (0-1); Hematocrit 38.9 % (37-47); Hemoglobin 13.3 g/dL (12.0-15.0); Lymphocyte # 1.43 X10^3/ul (0.83-4.51); Lymphocyte % 22.6 % (19-41); Mean Corp Hgb Conc 34.2 g/dL (32-36); Mean Corpuscular Hgb 29.8 pg (27.0-32.0); Mean Platelet Vol. 10.1 fl (6.2-12.0); Monocyte# 0.59 X10^3/uL; Monocyte% 9.3 % (0-10); NRBC Flagged by Analyzer 0 % (0-5); Neutrophil # 4.27 X10^3/uL (2.7-7.7); Neutrophil % 67.5 % (47-70); Platelet Count 216 K/mm3 (150-450); RBC Distribution Width CV 12.7 % (11.6-14.6); RBC Distribution Width SD 39.9 fl (35.1-43.9); Red Blood Count 4.47 M/mm3 (4.2-5.4); White Blood Count 6.3 K/mm3 (4.4-11.0)
[2024-10-13 07:54] LABS: ALB/GLOB Ratio 1.4 RATIO (0.9-2.4); AST(SGOT) 16 U/L (<=31); Alanine Aminotransfer ALT/SGPT 10 U/L (<=34); Albumin, Serum 3.8 g/dL (3.5-5.0); Alkaline Phosphatase 40 U/L (35-104); Anion Gap 7 (5-15); BUN 11 mg/dL (4-19); BUN/Creat Ratio 15.3 RATIO (10-20); Calcium,Total 8.3 mg/dL (7.6-11.0); Chloride 110 mmol/L (98-108); Cholesterol 168 mg/dL (<=200); Creatinine, Serum 0.72 mg/dL (0.70-1.20); EST Glomerular Filtration Rate 109 (>60); Estimated Creatinine Clearance 109.94 ml/min (50-250); Globulin 2.6 g/dL (2.2-4.2); Glucose 100 mg/dL (70-99); High Density Lipoprotein 39 mg/dL; Low Density Lipoprotein Calc. 119 mg/dL; Potassium 3.8 mmol/L (3.3-5.1); Protein, Total 6.4 g/dL (5.9-8.4); Sodium Level 137 mmol/L (133-145); Total Bilirubin 0.36 mg/dL (0.00-1.30); Triglycerides 52 mg/dL; Very Low Density Lipoprotein 10 mg/dL (5-40); cholesterol:hdl ratio screen 4.36
[2024-10-13 08:00] VITALS: BP 114/71; PULSE 68; RESP 18; TEMP 36.7; O2SAT 98
[2024-10-13] MEDS: Aspirin 81 MG TAB.CHEW PO (08:07)
[2024-10-13 08:54] LABS: Hemoglobin A1c 4.9 % (<=5.6)
[2024-10-13 11:04] VITALS: O2SAT 97
--- NOTE | 2024-10-13 12:18 | PCM.DC ---
Discharge Instructions Diet Discharge Diet: No restrictions DC O2, CPAP, BIPAP needs Home O2 Discharge instructions: No Dressing / Incision Discharge Activity: Return to Normal Activity Dressing / Incision Call your doctor if you observe: Fever of 101 or Higher, Shortness of breath, Dizziness, Fainting spells, Swelling in the ankles, Chest pain and Increased palpitations (irregular heartbeat) Follow Up Care Test Results: Test results from this visit will be discussed in further detail at your follow-up appointment, if applicable. Discharge Plan Admission Admit Date/Time: 10/12/24 17:26 Attending Provider: Xavier Enriquez Primary Care Provider: Regine Hay NP Consulting Providers: Guille Salgado; Andrae Hernandez; Char Byrnes; Ginna Poole; Krystin Snyder; Dom Flores; Anastasiya Arteaga; Luc Lowry; Gael Hernandes; Murali Luna; Mallory Olivares; Eliseo Alvares; So Whitman; Xochitl Newton; Bridgett Dominguez; Jeremy Sherwood; Karlos Gomez; Mello Cisse; Delia Minaya; Eric Monteiro; Bekah Anthony Discharge Orders/Prescriptions Prescriptions: Continued metformin 500 mg tablet extended release 24 hr 500 mg PO DAILY topiramate [Topamax] 50 mg tablet 27.5 mg PO Q12H Rx Instructions: PT STATES SHE TAKES A COMBO MED THAT SHE GETS FROM THE [facility] THAT IS 27.5MG OF TOPIRAMATE AND 90MG VITAMIN B12 mecobalamin (vitamin B12) 1,000 mcg lozenge 1,000 mcg PO BID Rx Instructions: PT STATES SHE TAKES A COMBO MED THAT SHE GETS FROM THE [facility] THAT IS 27.5MG OF TOPIRAMATE AND 90MG VITAMIN B12 Referrals / Follow Up: Regine Hay GRADES 7 8 TUTOR, GRADES 7 8 TUTOR-C [Primary Care Provider] - Within 1 Week Disposition Disposition (needs filled in before D/C Order can be placed): Home, Self Care
--- NOTE | 2024-10-13 12:52 | NURSING ---
[facility] late d/t patient off floor for MRI
[2024-10-13 12:55] VITALS: BP 139/83; PULSE 91; RESP 18; TEMP 36.7; O2SAT 99
--- NOTE | 2024-10-13 13:06 | STROKE.CONS ---
Assessment and Plan: Stroke Assessment/Plan JOAQUIN HARRIS is a 39 F with a history of diabetes who presents for evaluation of a brief episode of parasthesias to her right face, chest, back and arm. This is a non specific presentation, but very uncommon for stroke/TIA given the intense positive sensory symptoms, very brief duration and atypical symptom distribution. Episodes like this are not uncommon in the context of primary headache syndromes such as migraine (and while she characterizes her headaches as sinus headaches, they have some migrainous features). Seizure is on jack differential, but also unlikely for much the same reasons as TIA. Neurological examination is normal. MRI brain is normal - No further workup. - If episodes recur, consider EEG - Would evaluate headache management after planned sinus procedure. HPI Consult Data Date of Consult: 10/13/24 HPI Narrative HPI Narrative: JOAQUIN HARRIS, is a 39 F who presents with a less than 10 second episode of severe parastheasis to her right face, next, chest, back and arm. She states that she was in her normal state of health while seated when she looked up. She felt that her eyes went into the back of her head and then a painful electric-shock like senation rapidly radaited form her eyes to her occiput and neck and then to her right scapula region, chest and into her right arm. The entire episode lasted less than 10 seconds. No sensory loss. She felt somewhat generally weak after the episode, but was able to perform her normal activities and did not note any focal weakness. She suspects she has had similar episodes in [facility] past that may have briefly awoken her from sleep, but then she falls quickly back asleep. She has regular headaches with some migrainous features in the context of severe sinus disease. They have been characterized as sinus headaches and she is supposed to undergo a sinus procedure to try and mitigate the headaches. [facility] Medical History Tachycardia Obesity Home Medications ?Medication ?Instructions ?Recorded ?Last Taken ?Type mecobalamin (vitamin B12) 1,000 1,000 mcg PO BID weightloss 10/12/24 10/12/24 History mcg lozenges metformin 500 mg tablet,extended 500 mg PO DAILY diabetes 10/12/24 10/11/24 History release 24 hr topiramate 50 mg tablet (Topamax) 27.5 mg PO Q12H WEIGHT LOSS 10/12/24 10/12/24 History Allergy/AdvReac Type Severity Reaction Status Date / Time morphine Allergy Hives Verified 10/12/24 16:30 mushroom (mushrooms) Allergy Hives Verified 10/12/24 16:30 Family History (Updated 10/12/24 @ 17:[address] Bekah Anthony MD) Grandfather Pulmonary emboli Mother No problems noted. Father No problems noted. Surgical History History of cholecystectomy History of ovarian cystectomy History of colonoscopy S/P cholecystectomy Social History household members: spouse Smoking Status: Never smoker alcohol intake: never substance use type: does not use caffeine: No Vital Signs Vital Signs Vital Signs: 10/12/24 13:55 10/12/24 14:55 10/12/24 15:00 Temperature 98.4 F Temperature Source Oral Pulse Rate 83 78 78 Respiratory Rate 18 16 16 Respiratory Effort Respiratory Depth Respiratory Pattern Blood Pressure 156/90 H 143/76 H 134/78 H Blood Pressure Mean 112 98 96 Pulse Ox 100 98 98 Oxygen Delivery Method Room Air Room Air Room Air 10/12/24 15:11 10/12/24 15:11 10/12/24 15:11 Temperature 98.6 F 98.6 F Temperature Source Oral Oral Pulse Rate 67 107 H Respiratory Rate 16 98 H Respiratory Effort Respiratory Depth Respiratory Pattern Blood Pressure 141/78 H Blood Pressure Mean 99 Pulse Ox 98 100 Oxygen Delivery Method Room Air Room Air Room Air 10/12/24 15:41 10/12/24 16:00 10/12/24 16:11 Temperature 98.6 F 98.4 F Temperature Source Oral Oral Pulse Rate 78 78 78 Respiratory Rate 14 16 18 Respiratory Effort Respiratory Depth Respiratory Pattern Blood Pressure 131/78 H 132/66 H 136/78 H Blood Pressure Mean 95 88 97 Pulse Ox 98 99 97 Oxygen Delivery Method Room Air Room Air Room Air 10/12/24 16:37 10/12/24 17:00 10/12/24 18:00 Temperature 98.7 F 98.6 F Temperature Source Oral Oral Pulse Rate 78 64 78 Respiratory Rate 14 18 16 Respiratory Effort Respiratory Depth Respiratory Pattern Blood Pressure 128/64 H 129/79 H 128/76 H Blood Pressure Mean 85 95 93 Pulse Ox 98 97 98 Oxygen Delivery Method Room Air Room Air Room Air 10/12/24 18:38 10/12/24 19:49 10/12/24 20:00 Temperature 97.8 F 97.8 F Temperature Source Temporal Pulse Rate 60 85 Respiratory Rate 18 18 Respiratory Effort Respiratory Depth Respiratory Pattern Blood Pressure 128/78 H 134/76 H Blood Pressure Mean 94 95 Pulse Ox 99 98 97 Oxygen Delivery Method Room Air Room Air 10/13/24 00:00 10/13/24 04:12 10/13/24 08:00 Temperature 98.2 F 98.1 F 98.0 F Temperature Source Oral Oral Temporal Pulse Rate 79 66 68 Respiratory Rate 18 18 18 Respiratory Effort Respiratory Depth Respiratory Pattern Blood Pressure 129/65 H 111/57 L 114/71 Blood Pressure Mean 86 75 85 Pulse Ox 100 98 98 Oxygen Delivery Method Room Air Room Air Room Air 10/13/24 08:08 10/13/24 12:55 Temperature 98.0 F Temperature Source Oral Pulse Rate 91 Respiratory Rate 18 Respiratory Effort Normal Non-Labored Respiratory Depth Normal Respiratory Pattern Normal Blood Pressure 139/83 H Blood Pressure Mean 101 Pulse Ox 99 Oxygen Delivery Method Room Air Room Air Weight Weight: 78.834 kg Body Mass Index (BMI) 30.3 EEG Results Procedure Details EEG Procedure Details: JOAQUIN HARRIS is a 39 year old F with a past medical history of , who presents for evaluation of Electroencephalogram on DATE at TIME Physical Exam Narrative Screening neuro exam completely normal. Lab / Micro Data 10/13/24 06:36 10/13/24 06:36 Labs: Laboratory Results - last 24 hr 10/12/24 13:20: Serum , Qual NEGATIVE 10/12/24 15:20: WBC 8.2, RBC 5.01, Hgb 15.1 H, Hct 43.3, MCV 86.4, MCH 30.1, MCHC 34.9, RDW Std Deviation 39.9, RDW Coeff of Heather 12.8, Plt Count 248, MPV 10.2, Immature Gran % (Auto) 0.400, Neut % (Auto) 80.4 H, Lymph % (Auto) 14.1 L, [place] % (Auto) 5.0, Eos % (Auto) 0.0, Baso % (Auto) 0.1, Absolute Neuts (auto) 6.6, Absolute Lymphs (auto) 1.16, Nucleated RBC % 0, PT 14.1, INR 1.1, APTT 25.4, Sodium 140, Potassium 3.6, Chloride 108, Carbon Dioxide 21.2, Anion Gap 11, BUN 18, Creatinine 0.88, Estim Creat Clear Calc 92.01, Est GFR (MDRD) Non-Af 87, BUN/Creatinine Ratio 20.1 H, Glucose 100 H, Calcium 8.8, Magnesium 2.3 H, Troponin T High Sens < 6 10/12/24 16:16: Troponin T Hi Sens 2 Hr < 6 10/13/24 06:36: WBC 6.3, RBC 4.47, Hgb 13.3, Hct 38.9, MCV 87.0, MCH 29.8, MCHC 34.2, RDW Std Deviation 39.9, RDW Coeff of Heather 12.7, Plt Count 216, MPV 10.1, Immature Gran % (Auto) 0.300, Neut % (Auto) 67.5, Lymph % (Auto) 22.6, [place] % (Auto) 9.3, Eos % (Auto) 0.0, Baso % (Auto) 0.3, Absolute Neuts (auto) 4.3, Absolute Lymphs (auto) 1.43, Nucleated RBC % 0, Sodium 137, Potassium 3.8, Chloride 110 H, Carbon Dioxide 19.0 L, Anion Gap 7, BUN 11, Creatinine 0.72, Estim Creat Clear Calc 109.94, Est GFR (MDRD) Non-Af 109, BUN/Creatinine Ratio 15.3, Glucose 100 H, Hemoglobin A1c 4.9, Calcium 8.3, Total Bilirubin 0.36, AST 16, ALT 10, Alkaline Phosphatase 40, Total Protein 6.4, Albumin 3.8, Globulin 2.6, Albumin/Globulin Ratio 1.4, Triglycerides 52, Cholesterol 168, LDL Cholesterol, Calc 119, VLDL Cholesterol 10, HDL Cholesterol 39 L, Cholesterol/HDL Ratio 4.36, TSH 3.650 Imaging Radiology Impression Brain CT 10/12/24 15:11 IMPRESSION: NORMAL NONCONTRAST HEAD CT. Red Alert: Nothing acute. The critical information above was relayed directly by me by telephone to Bradley Hannon on 10/12/2024 at 3:32 pm with readback verification. Reading Location: [facility] Head/Neck CTA 10/12/24 15:12 IMPRESSION: Patent anterior and posterior intracranial and extracranial circulation without hemodynamically significant stenosis. [facility] 10/12/24 15:40 IMPRESSION: Negative Chest. Reading Location: [id number] Echocardiogram 10/12/24 19:48 Interpretation Summary Normal LV size. Left ventricular systolic function is normal. The left ventricular ejection fraction is 65 %. Bubble contrast study is negative for PFO/ASD. Structurally normal valves. Ordering Physician: Bekah Anthony Referring Physician: Bradley Hannon Performed By: Kenia Alan, VIKTOR, RVT Active Medications Active Medications Active Medications: Current Medications Generic Name Dose Route Start Last Admin Trade Name Freq PRN Reason Stop Dose Admin Acetaminophen 650 mg 10/12/24 19:48 Acetaminophen 325 Mg Tablet PO Q4H PRN PRN Fever, pain 1-10/10 Al Hydroxide/Mg Hydroxide 30 ml 10/12/24 19:48 Mag Hydrox/Al Hydrox/Simeth 30 Ml Udc PO Q6H PRN PRN Gastric Burning Albuterol Sulfate 2.5 mg 10/12/24 19:48 Albuterol 2.5 Mg/3 Ml Vial.Neb. INHALATION Q2H PRN PRN Dyspnea, wheezing Aspirin 81 mg 10/13/24 08:00 10/13/24 08:07 Aspirin 81 Mg Tab.Chew PO 81 mg BREAKFAST MARIBETH Administration Enoxaparin Sodium 40 mg 10/13/24 10:00 10/13/24 08:12 Enoxaparin 40 Mg/0.4 Ml Syringe SC Not Given DAILY MARIBETH Guaifenesin 20 ml 10/12/24 19:48 Guaifenesin 10 Ml Udc (200mg/10ml) PO Q4H PRN PRN COUGH Hydralazine HCl 5 mg 10/12/24 19:48 Hydralazine 20 Mg/Ml Vial IV 10/13/24 19:48 Q30M PRN maintain BP parameters with HR <60 Labetalol HCl 10 - 20 mg 10/12/24 19:48 Labetalol 20 Mg/4 Ml Vial IV 10/13/24 19:48 Q10M PRN PRN maintain BP parameters with HR >/=60 Melatonin 3 mg 10/12/24 19:48 Melatonin 3 Mg Tablet PO QHS PRN PRN INSOMNIA Ondansetron HCl 4 mg 10/12/24 19:48 Ondansetron 4 Mg/2 Ml Vial IV Q8H PRN PRN NAUSEA/VOMITING Prochlorperazine Edisylate 5 mg 10/12/24 19:48 Prochlorperazine 10 Mg/2 Ml Vial IV Q4H PRN PRN Breakthrough Nausea/Vomiting Senna/Docusate Sodium 2 tablet 10/12/24 19:48 Senna/Docusate Sodium 1 Tablet PO BID PRN PRN Constipation Sodium Chloride 10 - 40 ml 10/12/24 20:13 0.9% Saline Lock 10 Ml Syringe IV UD PRN SALINE FLUSH NIHSS NIHSS Nursing Documentation NIHSS Nursing Documentation: NIHSS: Ischemic Stroke/TIA Start: 10/12/24 19:48 Text: For PCU Patients: NIH and Neuro Check every 4 Status: Active hours, PRN and with change in RN caregiver. Freq: [id number] Protocol: Activity Type Activity Date Activity User E-sign Co-sign Detail Recorded Client Recorded Date Recorded By Document 10/13/24 12:55 [id number] 10/13/24 12:57 10/13/24 12:55 NIH Stroke Scale [NIHSS] A score of 0 is normal or asymptomatic . Total possible score is 42. Inpatient: RN or Physician to activate a stroke alert for onset of new stroke symptoms or with NIHSS increase >/= 3 points. Following change in neurological status, NIHSS will be performed per physician order or more frequently PRN. -1a. Level of Consciousness 0 - Alert; keenly responsive -1b. LOC Questions 0 - Answers BOTH questions correctly -1c. LOC Commands 0 - Performs BOTH tasks correctly -2. Best Gaze 0 - Normal -3. Visual 0 - No visual loss -4. Facial Palsy 0 - Normal symmetrical movements -5a. Left Arm 0 - No drift; arm holds 90 ( or 45) degrees for full 10 seconds -5b. Right Arm 0 - No drift; arm holds 90 ( or 45) degrees for full 10 seconds -6a. Left Leg 0 - No drift; leg holds 30- degree position for full 5 seconds -6b. Right Leg 0 - No drift; leg holds 30- degree position for full 5 seconds -7. Limb Ataxia 0 - Absent -8. Sensory 0 - Normal; no sensory loss -9. Best Language 0 - No aphasia; normal -10. Dysarthria 0 - Normal -11. Extinction and Inattention 0 - No abnormality -Total 0 Query Text:A score of 0 is normal or asymptomatic. Total possible score is 42 . ED: Notify Physician for NIHSS increase by > / = 3 points. Inpatient: RN or Physician to activate a stroke alert for NIHSS increase of > / = 3 points. Coma Scale [Assess] -Eye Opening Spontaneous -Motor Obeys Commands -Verbal Oriented [Total] -Coma Scale Total 15
--- NOTE | 2024-10-13 13:53 | CASEMGMT ---
Social Work- Per neurology consultation note, Dr Hernandes reports that pt MRI of brain is normal and a stroke has been ruled out. SW remains available to follow for any needs. GEOFFREY Curran
--- NOTE | 2024-10-13 14:38 | PHA.DC.MR.R ---
Pharmacy [place] Med Reconciliation Pharmacy Service has performed discharge medication reconciliation for this patient. The patient's discharge medication list was reviewed for discrepancies and discrepancies were resolved. Medications at Discharge Home Medications mecobalamin (vitamin B12) 1,000 mcg lozenges 1,000 mcg PO BID weightloss 10/12/24 metformin 500 mg tablet,extended release 24 hr 500 mg PO DAILY diabetes 10/12/24 topiramate 50 mg tablet (Topamax) 27.5 mg PO Q12H WEIGHT LOSS 10/12/24
[2024-10-13 15:35] VITALS: BMI 30.3
--- NOTE | 2024-10-13 18:19 | PCM.DC.SUM ---
Providers Date of Admission: 10/12/24 Primary Care Physician: LORRAINE Muro Consultations 10/12/24 19:48 Consult: Tele-Neurology Routine Consulting Provider: [facility] Reason for Consult: Acute Ischemic Stroke/TIA EMERGENT Consult: No MD Notified: Yes Date Notified: 10/12/24 Time Notified: 21:02 Method of Notification: Answering Service Nursing Unit Staff Notify [facility] of Tele-Neurology Consult: Yes Reason For Visit: ? TIA Diagnosis Discharge Diagnosis (1) Right sided numbness: Status: Acute Code(s): R20.0 - Anesthesia of skin Medications at Discharge Home Medications mecobalamin (vitamin B12) 1,000 mcg lozenges 1,000 mcg PO BID weightloss 10/12/24 metformin 500 mg tablet,extended release 24 hr 500 mg PO DAILY diabetes 10/12/24 topiramate 50 mg tablet (Topamax) 27.5 mg PO Q12H WEIGHT LOSS 10/12/24 Hospital Course Operations None Procedures 2-D Echocardiogram Summary of Care Provided Minutes Spent on Discharge: 35 Hospital Course: Per HPI: The patient is a 39 y/o F w/ PMHx: Obesity who presents to the [facility] ED on 10/12/2024 with sudden onset of paresthesia/tingling to the head radiating down the entire right side of her body described as like an electrical shock lasting approximately 10 seconds with numbness also to the entire tongue, lower lip with some residual numbness ongoing for approximately 1 hour with a slight headache prompting ED evaluation. In the ED upon evaluation she notes symptoms of currently resolved. Stroke alert in the ED was initiated given concern and her NIH stroke scale assessment per neurology was 0 with concern for possible TIA versus migraine. 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 She does report that she has been on metformin and Topamax both for weight loss specifically. She denies ever having had a headaches or migraines previously. Workup in the ED included T98.4, heart rate 83, BP initially 156/90, respiratory rate 18, under percent on room air with most recent repeat vitals T98.7, heart rate 78, BP 120/64, respiratory rate 14, 98% on room air, CBC with WBC 8.2, hemoglobin 15.1, platelet 248 without marked shift, unremarkable coags, unremarkable BMP aside glucose 100, initial troponin less than 6, repeat delta less than 6, CT of the brain with no acute intracranial findings, CTA head and neck with patent anterior and posterior intracranial and extracranial circulation without any hemodynamically significant stenosis, chest x-ray with no acute cardiopulmonary findings, EKG sinus rhythm with no acute evidence of ischemia. Pending testing upon request evaluation patient. Hospital Course: 1. Radiculopathy?39-year-old female was at work when she looked to her right and slightly up developed shooting electrical pain down her right arm and then numbness. This is all since resolved. She did have some right sided neck pain with cervical compression but no reproduction of her radiculopathy. She did have a headache during this so there is a possibility of a complex migraine though she states that she does not have a history of migraines and she feels that most of her headaches are sinus headaches, she was supposed to have a sinus surgery today which she missed secondary to being admitted and receiving aspirin. MRI is still pending but echo was unremarkable. I discussed with her the plan for discharge today she expressed understanding of the risks and benefits of going home and she would like to go home today and not to wait for the MRI. I do recommend she follow-up with her PCP in 3 to 5 days. Physical Exam Narrative General: Alert, Oriented x3, Cooperative, No apparent distress HEENT: Atraumatic, PERRLA, EOMI, Normocephalic Oral: Moist Mucosa Neck: Supple, No JVD Lungs: Clear to auscultation, Normal air movement, No rhonchi, No wheeze, No rales Cardiovascular: Regular rate, Regular Rhythm, Normal S1, Normal S2, No murmurs Abdomen: Soft, Non Tender, Non-Distended, No Hepato-splenomegaly Extremities: No edema, Capillary Refill Less than 3 Seconds Skin: No rashes, No breakdown Musculoskeletal: No Tenderness to Palpation of Joints or Extremities Neurological: No focal neurological deficits, Motor Exam 5/5 strength throughout, Sensory exam intact to light touch and pain Psych/Mental Status: Normal Affect, Appropriate Weight / BMI Weight Weight: 173 lb 12.787 oz Body Mass Index (BMI) 30.3 ABG / Lab / Microbiology Data 10/13/24 06:36 10/13/24 06:36 Laboratory: Laboratory Results - last 24 hr 10/13/24 06:36: WBC 6.3, RBC 4.47, Hgb 13.3, Hct 38.9, MCV 87.0, MCH 29.8, MCHC 34.2, RDW Std Deviation 39.9, RDW Coeff of Heather 12.7, Plt Count 216, MPV 10.1, Immature Gran % (Auto) 0.300, Neut % (Auto) 67.5, Lymph % (Auto) 22.6, [place] % (Auto) 9.3, Eos % (Auto) 0.0, Baso % (Auto) 0.3, Absolute Neuts (auto) 4.3, Absolute Lymphs (auto) 1.43, Nucleated RBC % 0, Sodium 137, Potassium 3.8, Chloride 110 H, Carbon Dioxide 19.0 L, Anion Gap 7, BUN 11, Creatinine 0.72, Estim Creat Clear Calc 109.94, Est GFR (MDRD) Non-Af 109, BUN/Creatinine Ratio 15.3, Glucose 100 H, Hemoglobin A1c 4.9, Calcium 8.3, Total Bilirubin 0.36, AST 16, ALT 10, Alkaline Phosphatase 40, Total Protein 6.4, Albumin 3.8, Globulin 2.6, Albumin/Globulin Ratio 1.4, Triglycerides 52, Cholesterol 168, LDL Cholesterol, Calc 119, VLDL Cholesterol 10, HDL Cholesterol 39 L, Cholesterol/HDL Ratio 4.36, TSH 3.650 Radiography Diagnostic Testing: Radiology Impression Echocardiogram 10/12/24 19:48 Interpretation Summary Normal LV size. Left ventricular systolic function is normal. The left ventricular ejection fraction is 65 %. Bubble contrast study is negative for PFO/ASD. Structurally normal valves. Ordering Physician: Bekah Anthony Referring Physician: Bradley Hannon Performed By: Kenia Alan, VIKTOR, RVT D/C Instructions Discharge Diet: No restrictions Call your doctor if you observe: Fever of 101 or Higher, Shortness of breath, Dizziness, Fainting spells, Swelling in the ankles, Chest pain and Increased palpitations (irregular heartbeat) DC O2, CPAP, BIPAP Needs Home O2 Discharge instructions: No Meaningful Use Info Meaningful Use Meaningful Use Diagnoses (Choose all that apply): None applicable Ischemic Stroke Statin Dosing Therapy Reference: STATIN DOSE THERAPY REFERENCE: * Patients > 75 years receive moderate or high dose statin therapy. * Patients 75 years or YOUNGER should receive HIGH intensity statin dose unless contraindicated. You will be required to document reason for non-treatment if statin daily dose does not meet guidelines. HIGH DOSE STATIN THERAPY DAILY Atorvastatin > than or = to 40 mg Rosuvastatin > than or = to 20 mg Amlodipine + Atorvastatin > than or = to 2.5/40 mg Ezetimibe + Simvastatin 10/80 mg Simvastatin 80mg Discharge Plan Admission Admit Date/Time: 10/12/24 17:26 Attending Provider: Xavier Enriquez Primary Care Provider: Regine Hay NP Consulting Providers: Guille Salgado; Andrae Hernandez; Char Byrnes; Ginna Poole; Krystin Snyder; Dom Flores; Anastasiya Arteaga; Luc Lowry; Gael Hernandes; Murali Luna; Mallory Olivares; Eliseo Alvares; So Whitman; Xochitl Newton; Bridgett Dominguez; Jeremy Sherwood; Karlos Gomez; Mello Cisse; Delia Minaya; Eric Monteiro; Bekah Anthony Discharge Orders/Prescriptions Prescriptions: Continued metformin 500 mg tablet extended release 24 hr 500 mg PO DAILY topiramate [Topamax] 50 mg tablet 27.5 mg PO Q12H Rx Instructions: PT STATES SHE TAKES A COMBO MED THAT SHE GETS FROM THE [facility] THAT IS 27.5MG OF TOPIRAMATE AND 90MG VITAMIN B12 mecobalamin (vitamin B12) 1,000 mcg lozenge 1,000 mcg PO BID Rx Instructions: PT STATES SHE TAKES A COMBO MED THAT SHE GETS FROM [facility] THAT IS 27.5MG OF TOPIRAMATE AND 90MG VITAMIN B12 Referrals / Follow Up: Queden,Regine CONSTRUCTION MANAGEMENT ASSISTANT, CONSTRUCTION MANAGEMENT ASSISTANT-C [Primary Care Provider] - Within 1 Week Disposition Disposition (needs filled in before D/C Order can be placed): Home, Self Care Charges/Coding Visit Charges Inpatient E&M: 75501 Disch Hosp >30min
== END 2024-10-13 12:20 | disposition home or self-care (01) ==
LOC: ED 16:16 → PCU 17:54
PROVIDERS: Admitting Provider Family Medicine; Emergency Provider Emergency Medicine; PCP Nurse Practitioner Family; Referring Provider Emergency Medicine; Visit Provider Family Medicine
DX: M54.10 Radiculopathy, site unspecified (principal); R20.0 Anesthesia of skin; I10 Essential (primary) hypertension; E66.9 Obesity, unspecified; J32.9 Chronic sinusitis, unspecified; Z79.899 Other long term (current) drug therapy; Z68.30 Body mass index [BMI] 30.0-30.9, adult; Z79.84 Long term (current) use of oral hypoglycemic drugs; R03.0 Elevated blood-pressure reading, without diagnosis of hypertension; R94.31 Abnormal electrocardiogram [ECG] [EKG]
CPT/HCPCS: 36415; 70450; 70496; 70498; 70551; 71045; 80048; 80053; 80061; 83036; 83735; 84443; 84484; 84703; 85025; 85610; 85730; 93005; 93306; 94762; 96360; 96361; 97802; 99221; 99285; Q9957; Q9967; A4216; G0378